=== PATIENT | male | born 1975 | race Caucasian/White ===

== ENCOUNTER 2023-05-31 09:04 | Outpatient (CLI) | payer OTHER, SELFPAY | END 2023-05-31 09:05 | disposition home or self-care (01) | PROVIDERS: PCP Family Medicine; Visit Provider Family Medicine | DX: Z00.00 Encounter for general adult medical examination without abnormal findings (principal); D61.818 Other pancytopenia; Z13.6 Encounter for screening for cardiovascular disorders; Z13.1 Encounter for screening for diabetes mellitus; Z12.5 Encounter for screening for malignant neoplasm of prostate | CPT/HCPCS: 80053; 80061; 84153 ==

== ENCOUNTER 2023-06-24 11:13 | Outpatient (CLI) | payer OTHER, SELFPAY ==
--- NOTE | 2023-06-24 12:22 | W.ANESCHARGE ---
Anesthesia Charges Start Date/Time Anesthesia Start Date: 06/24/23 Anesthesia Start Time: 12:00 Stop Date/Time Anesthesia Stop Date: 06/24/23 Anesthesia Stop Time: 12:20
--- NOTE | 2023-06-24 13:59 | W.ANESCHARGE ---
Anesthesia Charges Start Date/Time Anesthesia Start Date: 06/24/23 Anesthesia Start Time: 12:00 Stop Date/Time Anesthesia Stop Date: 06/24/23 Anesthesia Stop Time: 12:20
== END 2023-06-24 11:14 | disposition home or self-care (01) ==
LOC: OP CLINIC 11:14
PROVIDERS: PCP Family Medicine; Visit Provider Internal Medicine
DX: Z12.11 Encounter for screening for malignant neoplasm of colon (principal)
CPT/HCPCS: 00812; 45378; J2704

== ENCOUNTER 2024-04-26 10:40 | Outpatient (CLI) | payer OTHER, SELFPAY | END 2024-04-26 10:41 | disposition home or self-care (01) | LOC: LKVREF 10:42 | PROVIDERS: PCP Family Medicine; Visit Provider Family Medicine | DX: D64.9 Anemia, unspecified (principal); G25.81 Restless legs syndrome; R06.81 Apnea, not elsewhere classified | CPT/HCPCS: 82728 ==

== ENCOUNTER 2024-05-27 19:15 | Outpatient (CLI) | payer OTHER, SELFPAY ==
--- NOTE | 2024-06-06 08:36 | W.PM.SLEEP ---
Sleep Study Details Details Interpreting Provider: Brooks Date of Sleep Study: 05/27/24 Sleep Study Details: STUDY TYPE:? Home unattended ? BMI:? 28.1 ORDERING PROVIDER:Alexandra Guy INDICATION:? Concern about sleep apnea ? SLEEP SUMMARY:? 550 minutes monitor RESPIRATORY SUMMARY:? AHI 6.6, left lateral 4.7, supine 9.8, right lateral 0 Low oxygen 80 5.9% of study oxygen less than 90% Snoring 53% PERIODIC LIMB MOVEMENTS OF SLEEP:? Not recorded] CARDIAC:? Range 32-110, mean 67.1 IMPRESSION:? Mild obstructive sleep apnea with supine position dependency RECOMMENDATION: Treatment options include CPAP, dental appliance and/or airway expansion surgery.
== END 2024-05-27 19:16 | disposition home or self-care (01) ==
LOC: SLEEP 19:16
PROVIDERS: PCP Family Medicine; Visit Provider Otolaryngology
DX: G47.33 Obstructive sleep apnea (adult) (pediatric) (principal)
CPT/HCPCS: 95806

== ENCOUNTER 2024-07-22 11:06 | Emergency (ER) | payer OTHER, SELFPAY ==
[2024-07-22 11:08] VITALS: BP 157/104; PULSE 72; RESP 16; TEMP 36.6; O2SAT 98; BMI 26.5
--- OUTSIDE RECORDS SUMMARY | 2024-07-22 11:08 | XMS_ITS | Clinical Summary ---
Author Organization [email or web address] [facility] Address [place], [place] [address] Care Team Providers Care Lunchroom Operator Name Role Phone Papo Bruner MD Primary Care Provider [phone] Allergies No known active allergies Medications No known medications Immunizations Name Administration Dates Next Due Tdap 02/05/2024 Social History Tobacco Use Types Packs/Day Years Used Date Smoking Tobacco: Never Passive Smoke Exposure: Past Smokeless Tobacco: Former Chew Tobacco Cessation:Counseling Given: Not Answered Alcohol Use Standard Drinks/Week Comments Yes 2 (1 standard drink = 0.6 oz pur e alcohol) Social Connections Answer Date Recorded Frequency of Communication with Friends and Fami ly Not on file 08/25/2021 Financial Resource Strain Answer Date R ecorded Difficulty of Paying Living Expenses Not on file 08/25/2021 Difficulty of Paying Living Expenses Not on file 08/25/2021 Sex and Gender Information Value Date Recorded Sex Assigned at Not on file 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 Gender Identity Not on file Sexual Orientation Not on file Obstetrics History Last Filed Vital Signs Vital Sign Reading Time Taken Comments Blood Pressure 127/61 02/16/2024 1:30 PM CDT MAP -88 Pulse 95 02/16/2024 1:30 PM CDT Temperature 36.9 C (98.4 F) 02/16/2024 1:30 PM CDT Respiratory Rate 20 02/16/2024 1:30 PM CDT Oxygen Saturation 96% 02/16/2024 1:30 PM CDT Inhaled Oxygen Concentration - - Weight 87.6 kg (193 lb 3.2 oz) 02/05/2024 4:05 P M CDT Height - - Body Mass Index - - Plan of Treatment Health Maintenance Due Date Last Done Comments Depression screening for age 12+ 1989 HIV for age 15-65 1992 BMI (ht and wt on same day) for age 18+ 1995 Hepatitis C screening for ag e 18-79 1995 Colonoscopy through age 75 2022 Lipids for age 45-75 2022 COVID-19 vaccine series (2023- season) 2024 Influenza for age 9-49 03/04/2024 Tetanus booster 02/04/2034 02/05/2024 Tdap Completed 02/05/2024 Pneumococcal series for age 6-49 Aged Out No longer eligible based on patient's age to complete this topic Insurance [facility] Care Teams Lunchroom Operator Relationship Specialty Start Date End Date Papo Bruner MD [address] [place] [address] PCP - General Family Practice 07/23/21
--- OUTSIDE RECORDS SUMMARY | 2024-07-22 11:08 | XMS_ITS | Clinical Summary ---
Author Organization [facility] Address [address], [place] [address] Care Team Providers Care Manual Plate Filler Name Role Phone Papo Bruner MD Primary Care Provider [phone] Source Comments You are receiving this document as you are listed as the primary care provider,follow-up provider, or the patient has been referred to you for consultation.This is in compliance with the Medicare and[facility] EHR Incentive Program,which states Providers who transition their patient to another setting of careor provider of care or refers their patient to another provider of care shouldprovide summary care record for each transition of care or referral. [place] Allergies No known active allergies Medications No known medications Immunizations Name Administration Dates Next Due Flu Vac Preserv Free (3+yrs) 06/01/2007 HepA Adult (19+ yrs) 06/01/2007,09/24/2002 HepA, Pediatric (DO NOT USE; for [facility] only) 09/02 HepB Adult (Engerix-B, 20+ y rs, 3 dose series) 04/15/2003,12/10/2002,09/24/2002 HepB, Unspecified Formulation 04/15/2003 Influenza, Unspecified Formulation 06/01/2007 Td 09/24/2002 Tdap 12/02/2016 Social History Tobacco Use Types Packs/Day Years Used Date Smoking Tobacco: Never Sex and Gender Information Value Date Recorded Sex Assigned at Not on file Gender Identity Not on file Sexual Orientation Not on file Last Filed Vital Signs Vital Sign Reading Time Taken Comments Blood Pressure 159/98 08/19/2023 1:34 PM VIBRATION TECHNICIAN Pulse 82 08/19/2023 1:34 PM VIBRATION TECHNICIAN Temperature 36.9 C (98.4 F) 08/10/2007 2:42 PM VIBRATION TECHNICIAN C: 36.9 C Respiratory Rate - - Oxygen Saturation - - Inhaled Oxygen Concentration - - Weight 90 kg (198 lb 8 oz) 08/19/2023 1:34 PM CS T Height 175.3 cm (5' 9) 04/08/2023 10:25 AM CDT Body Mass Index 29.31 04/08/2023 10:25 AM CDT Plan of Treatment Health Maintenance Due Date Last Done Comments Colon Cancer Screening Plan Due 1977 Hep C Screening (Preventive Services) 1977 HIV Screening (Preventive Services) 1993 Adult Preventive Visit 1995 Cholesterol 01/30/2015 01/30/2010, 06/01/2007 COVID-19 Vaccine ( season) 2024 Influenza (#1) 2024 06/01/2007, 06/01/2007 DTaP/Tdap/Td (2 - Tdap) 12/02/2026 12/02/2016, 09/24 Zoster/Shingles (1 of 2) 2027 HepB Completed 04/15/2003, 04/03, 12/10/2002, Additional history exists HepA Completed 06/01/2007, 09/02, 09/24/2002 Hib Aged Out No longer eligi ble based on patient's age to complete this topic IPV (Polio) Aged Out No longer eligi ble based on patient's age to complete this topic MCV4 Aged Out No longer eligi ble based on patient's age to complete this topic Pneumococcal Aged Out No longer eligi ble based on patient's age to complete this topic Procedures Procedure Name Priority Date/Time Associated Diagnosis Comments LIPID PANEL & DIRECT LDL (IF NEEDED) Routine 01/30/2010 10:39 AM CDT from Last 3 Months or Most Recently Relevant to Health Maintenance Results * (ABNORMAL) Lipid Panel and Direct LDL(If Needed) (01/30/2010 10:39 AM CDT) Cholesterol 167 0 - 200 mg/dL HP CONVERSION Triglycerides 73 0 - 149 mg/dL HP CONVERSION HDL Cholesterol 36(L) >39 mg/dL HP CONVERSION Cholesterol/HDL Ratio Screen 4.6 No normal range HP CONVERSION LDL Calculated 116 19 - 130 mg/dL HP CONVERSION Hours Fasting 12 No normal range HP CONVERSION 01/30/2010 10:3 9 AM CDT Juanjose Morgan MD LAB_1 HP CONVERSION from Last 3 Months or Most Recently Relevant to Health Maintenance Care Teams Manual Plate Filler Relationship Specialty Start Date End Date Papo Bruner MD [address] [place] [address] PCP - General Family Practice 04/04/23
--- OUTSIDE RECORDS SUMMARY | 2024-07-22 11:08 | XMS_ITS | Continuity of Care Document ---
Author Organization [facility] Address [address] [place] [address] Phone Care Team Providers Care Mushroom Press Operator Name Role Phone Bolivar COLEY, PhD, Antolin Unavailable Unavai lable Allergies, Adverse Reactions, Alerts Substance Reaction Status Criticality No Known Allergies Active No Inform ation Medications Medication Instructions Dosage Effective Dates (start - stop) Status Comments prednisone 20 mg tablet Take 1 tab BID 5 days. Then take 1 TAB QAM 5 days. - No Longer Active Procedures Procedure Date Office/Outpatient Visit,Est, Mod 2021 OFFICE/OUTPATIENT VISIT EST Video Office/Outpatient Visit,New, Mod 2020 Advance Directives Directive Yes / No Effective Date File Name No Information Encounters Encounter Description Practice Location Reason(s) For Visit Diagnoses Date Provider Providers Copied on Encounter Office/Outpat ient Visit,Est, Mod [facility], [address], [place], [id number], [place] tel:[phone] [facility] [place] Low back pain, unspecified Bolivar Dangelo. [facility], [address], [place], [address], [place]. tel:[phone] Referring Provider: Abdirahman Ambrocio, [facility] [address], [place], [address] . tel:[phone] OFFICE/OUTPAT IENT VISIT EST Video [facility], [address], [place], [id number], [place] tel:[phone] [facility] [place] No Information Cristóbal Gary. [facility], [address], [place], [place], [id number], [place]. tel:[phone] Referring Provider: Abdirahman Ambrocio, [facility] [address], [place], [address] . tel:[phone] Office/Outpat ient Visit,New, Mod [facility], [address], [place], [place], [id number], [place] tel:[phone] [facility] Low back pain Cristóbal Gary. [facility], [address], [place], [place], [id number], [place]. tel:[phone] Referring Provider: Abdirahman Ambrocio, [facility] [place] [address], [place], [address] . tel:[phone] Family History Family Member Type Diagnosis Age At Onset No Information Payers Payer name Insurance type Covered green party ID Nino saldana(s) R CI [id number] Social History Type Description Quantity Date Captured Comments Alcohol Use Details Unknown Caffeine Use Details Unknown Tobacco Use Status No Information Smoking Status No Information Sex Male Vital Signs Date / Time: Height Weight BMI Pulse Rate Blood Pressure Temperature Respiratory Rate Body Surface Area Head Circumference Head Circ. Percentile Wt./Reed. Percentile BMI percentile Pulse Ox Inhaled Ox 8:21 AM 68.75 in Chief Complaint And Reason For Visit No Information Reason For Referral Reason For Referral No Information History Of Present Illness Encounter Date Complaint History Of Prese nt Illness No Information Functional Status Date Functional Assessmen t No Information Instructions Date Instruction Additional Infor mation No Information Assessments Type Assessment Date assessment Low back pain, unspecified Patient Care Teams Name Effective Dates (start - stop) Status Members No Information
--- NOTE | 2024-07-22 11:29 | CRLHL7_ITS ---
For Patients: As a result of the 21st Century Cures Act, medical imaging exams and procedure reports are released immediately into your electronic medical record. You may view this report before your referring provider. If you have questions, please contact your health care provider. INDICATION: Two day history of progressive epigastric abdominal pain. COMPARISON: None available. TECHNIQUE: CT of the abdomen and pelvis with 99 cc of Isovue 370 intravenous contrast. Please note that all CT scans at this facility use dose modulation, iterative reconstruction, and/or weight-based dosing when appropriate to reduce radiation dose to as low as reasonably achievable. FINDINGS: ABDOMEN Liver: Normal contour and attenuation. No significant focal lesion. No intrahepatic biliary ductal dilatation. Patent portal veins. Patent hepatic veins. Gallbladder: Normal size. No pericholecystic inflammatory changes. Normal common duct caliber. Pancreas: Infiltration of the peripancreatic fat about the pancreatic head and uncinate process with extension to the root of the small bowel mesentery consistent with acute uncomplicated pancreatitis. No evidence of pancreatic necrosis. No significant focal lesion. Normal main duct caliber. Spleen: Not enlarged. No significant focal lesion. Patent splenic artery and vein. Adrenal Glands: Symmetrical adrenal glands. No significant focal lesion. Kidneys: Normal bilateral renal attenuation. No significant focal lesion. No nephrolith. No dilatation of the intrarenal collecting systems. No ureteral stone. Nondilated ureters. Patent renal arteries and veins. Gastrointestinal tract: Normal caliber, attenuation and wall thickness of the gastrointestinal tract. No inflammatory changes. Normal appendix. Vascular: Abdominal aorta and its major proximal branches including the celiac, superior mesenteric, inferior mesenteric, renal, and bilateral common iliac arteries are patent. Patent superior mesenteric vein. Peritoneal Cavity/Retroperitoneum: No ascites. No adenopathy. PELVIS No bladder lesion is identified. No significant incidental findings related to the prostate or seminal vesicles. No significant ascites. No adenopathy. SKELETON AND BODY WALL No acute or significant incidental findings. Moderate disc degeneration at L5-S1. Small bone islands are noted incidentally within the left femoral head. LOWER THORAX Partially included lower thoracic wall, lungs, pleural spaces and mediastinum are otherwise without significant incidental findings. IMPRESSION: Infiltration of the peripancreatic fat about the pancreatic head and uncinate process with extension to the root of the small bowel mesentery consistent with acute uncomplicated pancreatitis. Please note that all CT scans at this facility use dose modulation, iterative reconstruction, and/or weight-based dosing when appropriate to reduce radiation dose to as low as reasonably achievable. Dictated by Bulmaro Somers MD @ 07/22/2024 12:16:45 PM (Electronically Signed)
--- NOTE | 2024-07-22 11:32 | ED_ITS ---
HPI - Abdominal Pain General Chief Complaint: Abdominal Pain Stated Complaint: Burning in stomach for couple days Time Seen by Provider: 07/22/24 11:23 History of Present Illness HPI narrative: Patient is a 49-year-old healthy gentleman who comes in today for 2 days of burning epigastric pain. There is no radiation through to the back. He has had no nausea no vomiting no fevers no chills no changes bowel or bladder. He has had some minor anorexia due to his symptoms but no other abdominal pain. He has had no chronic history of a similar symptoms. He has really no reflux symptoms into his chest. He has no dysphagia. He has tried [id number]-[id number] acid reducers over the last day but is unable to get his symptoms under control. Pain is 8/10 at this time. Related Data Previous Rx's ?Medication ?Instructions ?Recorded hydrocodone 5 mg-acetaminophen 325 1 tab PO Q8H PRN pain #10 tabs 07/22/24 mg tablet Allergies Allergy/AdvReac Type Severity Reaction Status Date / Time No Known Drug Allergies Allergy Unverified 07/22/24 12:03 Review of Systems Status of ROS Reports: 10 or more systems reviewed and unremarkable except as noted in History and below [facility] Medical History Restless legs syndrome ?G25.81 - Restless legs syndrome (ICD-10) Encounter for screening examination for sexually transmitted disease ?Z11.3 - Encounter for screening for infections with a predominantly sexual mode of transmission (ICD-10) Exam Narrative: Exam Narrative: EXAM GENERAL: Patient appears comfortable and well. EYES: No scleral icterus. LYMPH: No supraclavicular or cervical lymphadenopathy. SKIN: Visible skin seen during exam normal or with benign process only. EXT: No dependent lower extremity pedal edema. HEART: Regular rate and rhythm with no murmurs, rubs, or gallops. LUNGS: Clear to auscultation bilaterally with no crackles or wheezes. ABD: Soft, non tender, non distended. PSYCH: Good eye contact, speech is not pressured. Const: Vital Signs, click to edit/add: Vital Signs - 24 hr 07/22/24 11:08 07/22/24 12:47 07/22/24 13:00 Temperature 97.9 F Pulse Rate 82 79 Pulse Rate [Pulse Oximeter] 72 Respiratory Rate 16 Blood Pressure [Ri ght Upper Arm] 157/104 H Pulse Oximetry 98 98 98 Oxygen Delivery Me thod Room Air Course Course ED Course: Patient seen and examined. CT abdomen pelvis CBC CMP EKG troponin lipase ordered. Vital Signs Vital signs: Initial Vital Signs Temperature 97.9 F 07/22/24 11:08 Temperature Source Temporal Artery Scan 07/22/24 11:08 Pulse Rate 72 07/22/24 11:08 Respiratory Rate 16 07/22/24 11:08 Blood Pressure 157/104 H 07/22/24 11:08 Blood Pressure Mean 121 H 07/22/24 11:08 Blood Pressure Position Sitting 07/22/24 11:08 Pulse Oximetry 98 07/22/24 11:08 Oxygen Delivery Method Room Air 07/22/24 11:08 Vital Signs Temperature 97.9 F 07/22/24 11:08 Pulse Rate 72 07/22/24 11:08 Respiratory Rate 16 07/22/24 11:08 Blood Pressure 157/104 H 07/22/24 11:08 Pulse Oximetry 98 07/22/24 11:08 Oxygen Delivery Method Room Air 07/22/24 11:08 Temperature 97.9 F 07/22/24 11:08 Pulse Rate 79 07/22/24 13:00 Respiratory Rate 16 07/22/24 11:08 Blood Pressure 157/104 H 07/22/24 11:08 Pulse Oximetry 98 07/22/24 13:00 Oxygen Delivery Method Room Air 07/22/24 11:08 Medications Administered Medications: Discontinued Medications Generic Name Dose Route Start Last Admin Trade Name Freq PRN Reason Stop Dose Admin Sodium Chloride 1,000 mls @ 1,000 mls/hr 07/22/24 12:27 07/22/24 12:34 0.9 % Sodium Chloride 1000 Ml IV 07/22/24 13:26 1,000 mls/hr .Q1H NIEVES Administration Lidocaine/Aluminum/Magnesium/Simeth 30 ml 07/22/24 11:57 07/22/24 12:19 Gi Cocktail (Visc Lido/Antacid) 30 Ml PO 07/22/24 11:58 30 ml ONCE ONE Administration Morphine Sulfate 2 mg 07/22/24 12:27 07/22/24 12:36 Morphine 2 Mg/Ml Inj IVP 07/22/24 12:28 2 mg ONCE ONE Administration MDM - Abdominal Pain MDM Narrative Medical decision making narrative: Patient is a 49-year-old gentleman who just got back from his honeymoon and presents with epigastric pain. He has evidence of acute uncomplicated pancreatitis on his CT scan. Ultrasound shows no gallstones. Patient did have some fruity alcoholic beverages while on his honeymoon. At this time patient feels much better is labs interestingly look fine. I did placement bowel rest with limited oral intake at home. I did offer him hospitalization prior to discharge. He would like to go home advance his diet slowly Tylenol Motrin and Vicodin for pain with primary care follow-up. Would recommend lipid panel further workup for cause of pancreatitis. Lab Data Labs: Lab Results 07/22/24 Range/Units 11:50 WBC 8.40 (4.50-11.00) K/uL RBC 5.22 (4.30-5.90) m/uL Hgb 15.2 (13.5-17.5) gm/dL Hct 42.8 (37.0-53.0) % MCV 82 (80-100) fL MCH 29 (26-34) pg MCHC 36 (32-36) gm/dL RDW Coeff of Adrian 12.2 (11.5-15.5) % Plt Count 274 (140-440) K/uL Neut % (Auto) 72.5 H (42.0-72.0) % Lymph % (Auto) 16.9 L (20-44) % Tillman % (Auto) 7.7 (0.0-11.0) % Eos % (Auto) 2.1 (0.0-7.0) % Baso % (Auto) 0.7 (0.0-3.0) % Neut # (Auto) 6.10 (1.7-7.0) K/uL Lymph # (Auto) 1.40 (0.90-2.90) K/uL Tillman # (Auto) 0.60 (0.00-0.90) K/UL Eos # (Auto) 0.18 (0.00-0.50) K/uL Baso # (Auto) 0.06 (0.00-0.30) K/uL Abs Immat Gran (auto) 0.01 (0.00-0.30) K/uL Imm/Tot Granulo (auto) 0.1 % Sodium 141 (135-149) mmol/L Potassium 3.8 (3.6-5.1) mmol/L Chloride 103 (96-114) mmol/L Carbon Dioxide 31 (20-32) mmol/L Anion Gap 7 (7-15) mEq/L BUN 17 (5-24) mg/dL Creatinine 1.0 (0.5-1.5) mg/dL Estimated Creat Clear 94.29 Estimated GFR 93 ml/min Glucose 103 (60-115) mg/dL Calcium 9.2 (8.4-10.6) mg/dL Total Bilirubin 1.0 (0.1-1.5) mg/dL AST 27 (12-35) U/L ALT 62 H (4-50) U/L Alkaline Phosphatase 71 (40-150) U/L Troponin I < 0.01 L (0.01-0.04) ng/mL Total Protein 7.7 (6.0-8.3) g/dL Albumin 4.8 (3.3-5.0) g/dL Lipase 174 (23-300) U/L Discharge Plan Discharge Clinical Impression: Pancreatitis Patient Disposition: Home, Self-Care Condition: Stable Instructions: Pancreatitis (ED) Additional Instructions: Tylenol 1000 mg 3 times a day as needed Motrin 600 mg 3 times a day as needed Rest Limit diet [place] as directed for severe pain Follow-up with your doctor as scheduled. Prescriptions: New hydrocodone-acetaminophen 5-325 mg tablet 1 tab PO Q8H PRN (Reason: pain) Qty: 10 0RF Follow Up/Referrals: Papo Bruner MD [Primary Care Provider] - Stand Alone Forms: [employer] Info Instructions
[2024-07-22 11:58] LABS: Basophils Absolute Auto 0.06 K/uL (0.00-0.30); Basophils Percent Auto 0.7 % (0.0-3.0); Eosinophils Absolute Auto 0.18 K/uL (0.00-0.50); Eosinophils Percent Auto 2.1 % (0.0-7.0); Hematocrit 42.8 % (37.0-53.0); Hemoglobin* 15.2 gm/dL (13.5-17.5); Immature Granulocytes Abs Auto 0.01 K/uL (0.00-0.30); Immature Granulocytes Pct Auto 0.1 %; Lymphocytes Percent Auto 16.9 % (20-44); Mean Corpuscular HGB Conc 36 gm/dL (32-36); Mean Corpuscular Hemoglobin 29 pg (26-34); Mean Corpuscular Volume 82 fL (80-100); Monocytes Percent Auto 7.7 % (0.0-11.0); Neutrophils Percent Auto 72.5 % (42.0-72.0); Platelet Count* 274 K/uL (140-440); RDW Coefficient of Variation % 12.2 % (11.5-15.5); Red Blood Count 5.22 m/uL (4.30-5.90)
[2024-07-22 12:00] LABS: Slide Review Reflex No
[2024-07-22 12:15] LABS: Albumin* 4.8 g/dL (3.3-5.0); Chloride* 103 mmol/L (96-114); Sodium* 141 mmol/L (135-149)
[2024-07-22 12:16] LABS: Potassium* 3.8 mmol/L (3.6-5.1)
[2024-07-22 12:18] LABS: Alkaline Phosphatase* 71 U/L (40-150); Anion Gap 7 mEq/L (7-15); Aspartate Amino Transferase* 27 U/L (12-35); Blood Urea Nitrogen* 17 mg/dL (5-24); Carbon Dioxide* 31 mmol/L (20-32); Est. Creatinine Clearance* 94.29; Estimated Glomerular Filt Rate 93 ml/min; Glucose* 103 mg/dL (60-115); Lipase* 174 U/L (23-300); Total Protein* 7.7 g/dL (6.0-8.3)
[2024-07-22 12:19] LABS: Alanine Aminotransferase* 62 U/L (4-50); Calcium* 9.2 mg/dL (8.4-10.6)
[2024-07-22] MEDS: GI COCKTAIL (VISC LIDO/ANTACID) 30 ML PO (12:19)
--- NOTE | 2024-07-22 12:29 | CRLHL7_ITS ---
For Patients: As a result of the Cures Act, medical imaging exams and procedure reports are released immediately into your electronic medical record. You may view this report before your referring provider. If you have questions, please contact your health care provider. INDICATION: Pancreatitis TECHNIQUE: Ultrasound abdomen limited. Sonographic images of the right upper quadrant were obtained using stovall-scale and color Doppler images. COMPARISON: CT abdomen pelvis 07/22/2024 FINDINGS: Liver: Echogenic liver. No masses. Gallbladder: No stones or sludge. Normal wall thickness. No pericholecystic fluid. Common bile duct: 3 mm. Pancreas: Pancreatic body is unremarkable. Remainder of the pancreas is obscured by bowel gas. Right kidney: Normal in size. Normal echotexture and cortex. No suspicious masses, stones, or hydronephrosis. IMPRESSION: Liver is echogenic, which can be seen with fatty liver. No evidence of cholelithiasis. Dictated by Asha Greer MD @ 07/22/2024 2:20:34 PM (Electronically Signed)
[2024-07-22 12:31] LABS: Troponin I* < 0.01 ng/mL (0.01-0.04)
[2024-07-22] MEDS: 0.9 % SODIUM CHLORIDE 1000 ml 1,000 ML IV (12:34)
[2024-07-22] MEDS: MORPHINE 2 MG/ML inj IVP (12:36)
[2024-07-22 12:47] VITALS: PULSE 82; O2SAT 98
[2024-07-22 13:00] VITALS: PULSE 79; O2SAT 98
[2024-07-22 13:15] VITALS: PULSE 87; O2SAT 97
== END 2024-07-22 13:46 | disposition home or self-care (01) ==
PROVIDERS: Emergency Provider Internal Medicine; PCP Family Medicine
DX: K85.90 Acute pancreatitis without necrosis or infection, unspecified (principal)
CPT/HCPCS: 36415; 74177; 76705; 80053; 83690; 84484; 85025; 93005; 96374; 99283; 99284; 99285; A9270; J2270; J7030; Q9967

== ENCOUNTER 2024-08-06 14:30 | Outpatient (CLI) | payer OTHER, SELFPAY | END 2024-08-06 14:31 | disposition home or self-care (01) | PROVIDERS: PCP Family Medicine; Visit Provider Family Medicine | DX: K85.90 Acute pancreatitis without necrosis or infection, unspecified (principal); R03.0 Elevated blood-pressure reading, without diagnosis of hypertension | CPT/HCPCS: 80053; 82150; 83690 ==

== ENCOUNTER 2024-08-27 13:00 | Outpatient (CLI) | payer OTHER, SELFPAY ==
--- NOTE | 2024-08-27 13:00 | CRLHL7_ITS ---
For Patients: As a result of the Century Cures Act, medical imaging exams and procedure reports are released immediately into your electronic medical record. You may view this report before your referring provider. If you have questions, please contact your health care provider. INDICATION: Follow-up pancreatitis TECHNIQUE: CT abdomen and pelvis acquired with 96 mL Isovue 370 IV contrast. COMPARISON: 07/22/[address] and abdomen ultrasound FINDINGS: Lower chest: Unremarkable. Liver: Mildly fatty. Gallbladder and bile ducts: Unremarkable. No stones or inflammation. No biliary dilatation. Pancreas: Previous pancreatitis has resolved. Pancreas appears normal. Spleen: Unremarkable. Normal in size. No masses. Adrenal glands: Unremarkable. No nodules. Kidneys: Unremarkable. No masses, stones, or hydronephrosis. GI tract: Unremarkable. Normal in caliber. No sign of mass or inflammation. Normal appendix. Vasculature: Unremarkable. Mesenteric arteries are patent. Lymph nodes: No lymphadenopathy. Omentum/Peritoneum/Abdominal Wall: Unremarkable. No sign of mass or infiltration. No free air or significant free fluid. Pelvis: Unremarkable. Bones: Unremarkable for age. IMPRESSION: Pancreatitis has resolved. Please note that all CT scans at this facility use dose modulation, iterative reconstruction, and/or weight-based dosing when appropriate to reduce radiation dose to as low as reasonably achievable. Dictated by Yan Tijerina MD @ 08/28/2024 2:44:28 PM (Electronically Signed)
== END 2024-08-27 13:01 | disposition home or self-care (01) ==
LOC: CT 13:02
PROVIDERS: PCP Family Medicine; Visit Provider Family Medicine
DX: K85.90 Acute pancreatitis without necrosis or infection, unspecified (principal)
CPT/HCPCS: 74177; Q9967